=== PATIENT | female | born 1945 | race Caucasian/White ===

== ENCOUNTER 2023-10-04 11:56 | Emergency (ER) | payer BC, MEDICARE, SELFPAY ==
[2023-10-04 11:58] VITALS: BP 153/76; PULSE 78; RESP 16; TEMP 36.7; O2SAT 98; BMI 37.7
--- NOTE | 2023-10-04 12:58 | CT_ITS ---
STUDY: CT Abdomen And Pelvis W/ Contrast Injection 10/04/2023 2:33 PM REASON FOR EXAM: Female, 77 years old. Abdominal pain abdominal pain vomiting Individualized dose optimization techniques were used for this CT. COMPARISON: None. TECHNIQUE: CT Abdomen And Pelvis W/ Contrast Injection IV 100mL [id number] FINDINGS: There are atherosclerotic calcifications of visualized coronary arteries. The visualized portions of the heart are within normal limits. Subcentimeter hypodense lesions in liver. These may be cysts or hemangiomas. There is a solitary gallstone. Nonspecific 7 mm hypodensity in the spleen. There is diffuse atrophy of the pancreas. Normal bilateral adrenal glands. No acute findings of the right kidney. No acute findings of the left kidney. Normal visualized stomach. Normal small intestine. There are multiple colonic diverticula consistent with diverticulosis. There are surgical clips in the region of the appendix consistent with a prior appendectomy. There are calcifications of the abdominal aorta. This is consistent for atherosclerotic disease. There is NO abdominal aortic aneurysm. Vascular workup can be obtained based on clinical correlation. Normal inferior vena cava. Subcentimeter mesenteric lymph nodes. Normal urinary bladder. Focal wall thickening and inflammation of the cecum and proximal ascending colon may suggest a regional colitis. Old healed left inferior pubic retraction. There is an umbilical hernia containing fat. There are diffuse degenerative changes of the visualized lumbar spine. There is bilateral neural foraminal stenosis at L4-5 and L5-S1. Levoscoliosis of the lumbar spine. CT/Abdomen/Pelvis W IV Cont ONLY IMPRESSION: (NOT LISTED IN ORDER OF SIGNIFICANCE) Focal wall thickening and inflammation of the cecum and proximal ascending colon may suggest a regional colitis. There is a solitary gallstone. There are multiple colonic diverticula consistent with diverticulosis. Other findings as above. Electronically Signed: Conrad Felix MD at 14:37 EDT ,
[2023-10-04 13:16] LABS: Absolute Lymphocyte Count 0.29 X10^3/uL (0.83-4.51); Absolute Neutrophil Count 4.8 X10^3/uL (2.0-7.7); Eosinophil# 0.01 X10^3/uL; Eosinophils% 0.2 % (0-5); Hematocrit 38.6 % (37-47); Hemoglobin 12.3 g/dL (12.0-15.0); Lymphocyte # 0.29 X10^3/ul (0.83-4.51); Lymphocyte % 5.5 % (19-41); Mean Corp Hgb Conc 31.9 g/dL (32-36); Mean Corpuscular Hgb 30.1 pg (27.0-32.0); Mean Corpuscular Volume 94.6 fL (81-99); Mean Platelet Vol. 9.4 fl (6.2-12.0); Monocyte# 0.15 X10^3/uL; Monocyte% 2.8 % (0-10); NRBC Flagged by Analyzer 0 % (0-5); Neutrophil # 4.84 X10^3/uL (2.7-7.7); Neutrophil % 91.3 % (47-70); POSITIVE DIFFERENTIAL YES; Platelet Count 203 K/mm3 (150-450); RBC Distribution Width CV 13.2 % (11.6-14.6); RBC Distribution Width SD 45.7 fl (35.1-43.9); Red Blood Count 4.08 M/mm3 (4.2-5.4); White Blood Count 5.3 K/mm3 (4.4-11.0)
[2023-10-04] MEDS: 0.9% Normal Saline (1000mL) 1,000 ML 999 ML IV (13:27)
[2023-10-04] MEDS: Ondansetron 4 MG/2 ML Vial IV (13:27)
[2023-10-04] MEDS: Pantoprazole Sodium 40 MG in 0.9% Normal Saline (100mL MB+) 100 ML 330 MG IV (13:27)
[2023-10-04 13:32] LABS: AST(SGOT) 16 U/L (15-37); Alanine Aminotransfer ALT/SGPT 18 U/L (13-56); Albumin, Serum 3.1 g/dL (3.2-5.0); Alkaline Phosphatase 90 U/L (45-117); Anion Gap 2 (5-15); BUN 24 mg/dL (7-18); BUN/Creat Ratio 29.1 RATIO (10-20); Bilirubin, Direct 0.12 mg/dL (0.00-0.30); Calcium,Total 8.8 mg/dL (8.5-10.1); Chloride 108 mmol/L (98-107); Creatinine, Serum 0.83 mg/dL (0.55-1.02); EST Glomerular Filtration Rate 71 mL/min (>60); Est Glom Filt Rate - Afr Amer 86 mL/min (>60); Estimated Creatinine Clearance 63.04 ml/min; Globulin 3.7 g/dL (2.2-4.2); Glucose 145 mg/dL (74-106); Lipase 36 U/L (13-75); Protein, Total 6.8 g/dL (6.4-8.2); Sodium Level 141 mmol/L (136-145)
[2023-10-04 13:57] VITALS: BP 144/82; PULSE 77; RESP 20; O2SAT 96
--- NOTE | 2023-10-04 14:34 | EDS_ITS ---
HPI History of Present Illness Chief Complaint: Nausea/Vomiting/Diarrhea Informant: patient and friend Narrative Narrative: 77-year-old female presenting to the emergency room with vomiting and diarrhea. Patient states that she is visiting the area from [place]. She is in town for an [employer]. Patient states that last evening she really did not feel much of an appetite and during the evening and night developed diarrhea. She notes the stools rather black now. She had been taking some Pepto-Bismol and Mylanta. She takes omeprazole for Crohn's disease. She does not take any other medicines for Crohn's. She states she has had 1 flare of her Crohn's about 6 years ago. She denies any fevers. She was commenting yesterday during the day however diet has not been what it normally is when she is at home. She denies any history of diverticulitis. No cough shortness of breath. PFSH PFS Medical History Ulcerative colitis Arthritis Borderline high cholesterol Anxiety Depression Hypertension Home Medications ?Medication ?Instructions ?Recorded ?Last Taken ?Type amoxicillin 875 mg-potassium 875 mg PO Q12H #20 TABLETS 10/04/23 Unknown Rx clavulanate 125 mg tablet ondansetron 4 mg disintegrating 4 mg PO Q6H PRN PRN Nausea #15 tabs 10/04/23 Unknown Rx tablet Allergy/AdvReac Type Severity Reaction Status Date / Time famotidine (From Pepcid) Allergy PT UNSURE Verified 10/04/23 12:07 OF REACTION Surgical History Total knee replacement status Hx of appendectomy Social History Smoking Status: Never smoker ROS ROS ED Constitutional Constitutional ED: Denies chills, fever(s) or weight loss Eyes Eyes: Denies change in vision or diplopia ENT ENT ED: Denies ear pain, rhinorrhea or sore throat Cardiovascular Cardiovascular: Denies chest pain, orthopnea, palpitations or racing heartbeat Respiratory/Chest Respiratory/Chest: Denies cough, dyspnea or orthopnea Gastrointestinal Gastrointestinal: Reports abdominal pain, diarrhea, nausea and vomiting Genitourinary Genitourinary ED: Denies dysuria, hematuria or urinary frequency Musculoskeletal Musculoskeletal: Denies arthralgias, back pain, myalgias or neck pain Integumentary Denies abscess or rash Neurologic Neurologic: Denies headache(s) or weakness Psychiatric Psychiatric: Denies anxiety, depression, suicidal ideation or suicidal thoughts Endocrine Endocrinology: Denies polydipsia, polyphagia or polyuria Allergic/Immunologic Allergic/Immunologic ED: Denies mouth swelling, tongue swelling or urticaria EXAM Physical Exam Const Vital Signs: 10/04/23 11:58 10/04/23 13:57 Temperature 98.0 F Temperature Source Oral Pulse Rate 78 77 Respiratory Rate 16 20 H Blood Pressure 153/76 H 144/82 H Blood Pressure Mean 101 102 Pulse Ox 98 96 Oxygen Delivery Method Room Air Room Air Positive well nourished, well developed and obese General Appearance ED: well developed Nutritional Appearance: obese HEENT Reports normocephalic, head/scalp atraumatic and moist mucous membranes Eyes PERRL and EOMs intact bilaterally Neck no lymphadenopathy, supple and no JVD Resp normal respiratory effort and clear to auscultation bilaterally Cardio regular rate, regular rhythm and no murmurs GI non-distended and no masses; Negative for hepatosplenomegaly Auscultation: normoactive bowel sounds Palpation: soft and tender epigastric; Negative for guarding or rebound tenderness present Back/Spine no CVA tenderness and normal ROM Extremity normal to inspection General Extremety ED: Negative for edema General Extremity: Negative for edema Neuro oriented x3 and CN's II-XII intact bilaterally Sensorium / Orientation: alert Motor Exam: strength 5/5 throughout Psych mental status grossly normal Mood & Affect: Negative for depressed or tearful Skin no rashes or lesions noted and no wounds MDM MDM MDM Narrative Medical decision making narrative: Differential diagnosis includes but limited to pancreatitis choledocholithiasis/biliary colic gastroenteritis colitis Ulcerative colitis Patient's white count 5.3 with hemoglobin 12.3 platelet count of 203. Sodium 24 creatinine 0.83. Potassium is 3 glucose is 145 lipase [address] then pelvis demonstrates some inflammatory changes around the cecum and the lower ascending colon. Patient received IV fluids and Zofran as well as Protonix. Spoke with the patient with the above results. Her colitis she is unsure of his foot was diagnosed off of a colon biopsy or not. She is not on any immunosuppressive medicine she is only had it once. The hesitant to start her on colitis as I do not have a strong definitive sense of what type of colitis this is. I can write for some Augmentin and some Zofran. I think the black stools probably from the Pepto-Bismol use. I think the patient can be discharged home would have her follow-up with primary care when she gets back to [place]. History & Record Review Discussion w/independent historian: Patient Lab Data Attestation: I reviewed the patient's lab results. Labs: Laboratory Results - last 24 hr 10/04/23 13:10 WBC 5.3 RBC 4.08 L Hgb 12.3 Hct 38.6 MCV 94.6 MCH 30.1 MCHC 31.9 L RDW Std Deviation 45.7 H RDW Coeff of David 13.2 Plt Count 203 MPV 9.4 Immature Gran % (Auto) 0.200 Neut % (Auto) 91.3 H Lymph % (Auto) 5.5 L [place] % (Auto) 2.8 Eos % (Auto) 0.2 Baso % (Auto) 0.0 Absolute Neuts (auto) 4.8 Absolute Lymphs (auto) 0.29 L Nucleated RBC % 0 Sodium 141 Potassium 3.0 L Chloride 108 H Carbon Dioxide 31.0 Anion Gap 2 L BUN 24 H Creatinine 0.83 Estim Creat Clear Calc 63.04 Est GFR (MDRD) Af Amer 86 Est GFR (MDRD) Non-Af 71 BUN/Creatinine Ratio 29.1 H Glucose 145 H Calcium 8.8 Total Bilirubin 0.50 Direct Bilirubin 0.12 AST 16 ALT 18 Alkaline Phosphatase 90 Total Protein 6.8 Albumin 3.1 L Globulin 3.7 Lipase 36 Radiography Diagnostic Testing: Clinical Impression(s) from Imaging Studies Abdomen/Pelvis CT 10/04/23 12:58 IMPRESSION: (NOT LISTED IN ORDER OF SIGNIFICANCE) Focal wall thickening and inflammation of the cecum and proximal ascending colon may suggest a regional colitis. There is a solitary gallstone. There are multiple colonic diverticula consistent with diverticulosis. Other findings as above. Electronically Signed: Conrad Felix MD at 14:37 EDT , Discharge Plan Triage Chief Complaint: Nausea/Vomiting/Diarrhea ED Provider: Zeferino Sanchez Dx/Rx/DC Orders Clinical Impression: Colitis, Vomiting Instructions: ED Understanding Colitis, ED Vomiting (Adult) Prescriptions: New ondansetron 4 mg tablet,disintegrating 4 mg PO Q6H PRN PRN (Reason: Nausea) Qty: 15 0RF amoxicillin-pot clavulanate 875-125 mg tablet 875 mg PO Q12H Qty: 20 0RF Primary Care Provider: Care Physician,No Primary Referrals: Care Physician,No Primary [Primary Care Provider] - Activity Restrictions/Additional Instructions: Please follow-up with your primary care provider when you return home. Print Language: Persian Disposition Disposition: Home, Self Care
[2023-10-04 15:56] VITALS: BP 145/71; PULSE 79; RESP 18; TEMP 36.7; O2SAT 100
== END 2023-10-04 15:58 | disposition home or self-care (01) ==
PROVIDERS: Emergency Provider Emergency Medicine; Visit Provider Emergency Medicine
DX: K52.9 Noninfective gastroenteritis and colitis, unspecified (principal); E78.00 Pure hypercholesterolemia, unspecified; I10 Essential (primary) hypertension; E66.9 Obesity, unspecified; R11.10 Vomiting, unspecified
CPT/HCPCS: 74177; 80048; 80076; 83690; 85025; 96361; 96365; 96375; 99282; J7030; Q9967; J2405